=== PATIENT | male | born 1970 | race Hispanic/Latino ===

== ENCOUNTER 2018-05-02 16:07 | Emergency (ER) | payer BC ==
[~2018-05-02] VITALS: Ht 177.8 cm; Wt 104.3 kg
[2018-05-02] MEDS ORDERED: LISINOPRIL10 MG PO (16:34)
[2018-05-02] MEDS ORDERED: FENOFIBRATE145 MG PO (16:34)
[2018-05-02] MEDS ORDERED: NORVASC5 MG PO (16:34)
== END 2018-05-02 16:45 | disposition home or self-care (01) ==
LOC: FSED 16:07
DX: R42 Dizziness and giddiness (principal); I10 Essential (primary) hypertension; F41.1 Generalized anxiety disorder
CPT/HCPCS: 93005; 99283

== ENCOUNTER → 2020-04-06 | Outpatient (CLI) | payer BC ==
[~2020-04-06] MED LIST: FENOFIBRATE145 MG PO; LISINOPRIL10 MG PO; NORVASC5 MG PO
--- NOTE | 2020-04-06 15:45 | Diagnostic Imaging Report ---
EXAMINATION: CERVICAL SPINE 4 OR 5 VIEWS INDICATION: Neck pain COMPARISON: None FINDINGS: AP, lateral, oblique, and odontoid images of the cervical spine were obtained. There is mild straightening of the normal cervical lordosis. No acute fracture. Minimal multilevel degenerative changes. The prevertebral soft tissues are normal in thickness. Minimally visualized lung apices appear clear. IMPRESSION: No acute osseous injury. Mild straightening of normal cervical lordosis. Minimal multilevel degenerative change. Signed by: Andre Miles MD on 04/06/2020 3:42 PM
== END ==
LOC: RAD 13:25
PROVIDERS: ATTEND Internal Medicine
DX: M54.2 Cervicalgia (principal)
CPT/HCPCS: 72050

== ENCOUNTER → 2020-08-31 | Outpatient (CLI) | payer BC | LOC: RAD 11:28 | PROVIDERS: ATTEND Internal Medicine | DX: E11.9 Type 2 diabetes mellitus without complications (principal); Z87.891 Personal history of nicotine dependence | CPT/HCPCS: 71046 ==